=== PATIENT | male | born 1985 | race Caucasian/White ===

== ENCOUNTER 2023-04-02 16:02 | Emergency (ER) | payer MEDICAID, OTHER ==
[2023-04-02 16:16] VITALS: O2SAT 99
--- NOTE | 2023-04-02 16:45 | ED Physician Documentation ---
History of Present Illness - Stated complaint Stated Complaint: BILAT LEG PX - Chief complaint Chief Complaint: General - History obtained from History obtained from: Patient - Additonal information Additional information: Otherwise healthy 38-year-old gentleman developed what he describes as tingling pains in both feet and symmetrically went up to the knees last night. Today he felt presyncopal. There is no associated chest pain or trouble breathing. He had a similar episode a few years ago with negative workup and subsequent neurology consultation that was without clear diagnosis. He does not take any medications. PD PAST MEDICAL HISTORY - Past Medical History Past Medical History: No - Past Surgical History Past Surgical History: Yes General: Appendectomy - Present Medications Home Medications: Ambulatory Orders Medication Instructions Recorded Confirmed No Known Home Medications 05/20/14 05/20/14 - Allergies Allergies/Adverse Reactions: Allergies Allergy/AdvReac Type Severity Reaction Status Date / Time No Known Drug Allergies Allergy Verified 05/20/14 07:14 - Social History Does the pt smoke?: No Smoking Status: Never smoker Does the pt drink ETOH?: Yes Does the pt have substance abuse?: No - POLST Patient has POLST: No PD ED PE NORMAL - Vitals Vital signs reviewed: Yes - General General: Alert and oriented X 3, No acute distress - Cardiac Cardiac: RRR, No murmur - Respiratory Respiratory: No respiratory distress, Clear bilaterally - Abdomen Abdomen: Normal bowel sounds, Soft, Non tender - Back Back: No CVA TTP, No spinal TTP - Derm Derm: Normal color, Warm and dry - Neuro Neuro: Alert and oriented X 3, Normal speech, Other (Intact sharp versus dull discrimination throughout the lower extremities. Normal lower extremity reflexes and strength.) Results - Vitals Vitals: Vital Signs - 24 hr 04/02/23 04/02/23 16:11 16:13 Temperature 36.7 C 36.7 C Heart Rate 100 100 Respiratory 18 18 Rate Blood Pressure 146/93 H 146/93 H O2 Saturation 99 99 Oxygen O2 Source Room air - EKG (time done) 1614 EKG releavant findings:: EKG personally interpreted by author of this note. Relevant findings are: Rate: Rate (enter#) (88) Rhythm: NSR [place]: Normal Intervals: Normal [place] QRS: Normal Ischemia: Normal ST segments Computer interpretation: Agree with computer - Labs Labs: Laboratory Tests 04/02/23 04/02/23 16:47 16:47 WBC 8.3 RBC 5.66 Hgb 15.9 Hct 47.6 MCV 84.1 MCH 28.1 MCHC 33.4 RDW 12.3 Plt Count 272 MPV 9.4 Neut # (Auto) 6.3 Lymph # (Auto) 1.3 L Divide # (Auto) 0.5 Eos # (Auto) 0.1 Baso # (Auto) 0.0 Absolute Nucleated RBC 0.00 Nucleated RBC % 0.0 Sodium 137 Potassium 4.1 Chloride 103 Carbon Dioxide 28 Anion Gap 6.0 BUN 16 Creatinine 1.0 Estimated GFR (MDRD) 85 L Glucose 102 Calcium 9.5 Magnesium 1.9 Total Bilirubin 1.4 H AST 19 ALT 36 Alkaline Phosphatase 87 Total Protein 7.6 Albumin 4.5 Globulin 3.1 Albumin/Globulin Ratio 1.5 TSH 2.87 PD Medical Decision Making - ED course ED course: 38-year-old gentleman with paresthesias, and very atypical tingling pain that is symmetric in both legs. This is not consistent with DVT. He also had some presyncope today. Had a similar episode few years ago with negative workup and neurology consultation. Suspect today's result will be similar, but reasonable to do some basic labs and EKG given his symptoms. CBC, CMP normal with exception of mild elevation of bilirubin which was present on prior labs done 8 years ago suggestive of Gilbert's Departure - Departure Disposition: 01 Home, Self Care Clinical Impression: Paresthesia of bilateral legs Condition: Good Record reviewed to determine appropriate education?: Yes Instructions: ED Paraesthesias Comments: The cause of your symptoms is unclear. EKG, CBC, CMP are all normal with the exception of a mild elevation in bilirubin which is chronic and seen on prior labs and not uncommon in healthy individuals. Call your doctor to arrange a follow-up appointment, make the next available appointment. In the interim, return anytime if worse or if new symptoms develop. Forms: PCP List
[2023-04-02 16:58] LABS: BASOPHILS % (AUTO) 0.5 %; EOSINOPHILS # (AUTO) 0.1 10^3/uL (0.0-0.7); HCT - HEMATOCRIT 47.6 % (42.0-52.0); HGB - HEMOGLOBIN 15.9 g/dL (14.0-18.0); LYMPHOCYTES # (AUTO) 1.3 10^3/uL (1.5-3.5); LYMPHOCYTES % (AUTO) 16.2 %; MEAN CORPUSCULAR HEMOGLOBIN 28.1 pg (27.0-31.0); MEAN CORPUSCULAR HGB CONC 33.4 g/dL (32.0-36.0); MEAN CORPUSCULAR VOLUME 84.1 fL (80.0-94.0); MEAN PLATELET VOLUME 9.4 fL (7.4-11.4); MONOCYTES # (AUTO) 0.5 10^3/uL (0.0-1.0); MONOCYTES % (AUTO) 6.5 %; NEUTROPHILS # (AUTO) 6.3 10^3/uL (1.5-6.6); NEUTROPHILS % (AUTO) 75.4 %; PLT - PLATELET COUNT 272 10^3/uL (130-450); RED BLOOD COUNT 5.66 10^6/uL (4.70-6.10); RED CELL DISTRIBUTION WIDTH 12.3 % (12.0-15.0); WHITE BLOOD COUNT 8.3 x10^3/uL (4.8-10.8)
[2023-04-02 17:14] LABS: ALBUMIN 4.5 g/dL (3.2-5.5); ALBUMIN/GLOBULIN RATIO 1.5 (1.0-2.2); BILIRUBIN,TOTAL 1.4 mg/dL (0.2-1.0); CALCIUM 9.5 mg/dL (8.5-10.3); MAGNESIUM 1.9 mg/dL (1.7-2.3); POTASSIUM 4.1 mmol/L (3.5-4.5); TOTAL PROTEIN 7.6 g/dL (6.4-8.9)
[2023-04-02 17:25] LABS: THYROID STIMULATING HORMONE 2.87 uIU/mL (0.34-5.60)
[2023-04-02 18:03] VITALS: BP 140/88
== END 2023-04-02 17:56 | disposition home or self-care (01) ==
LOC: ED 16:02
DX: R20.2 Paresthesia of skin (principal)
CPT/HCPCS: 36415; 80053; 83735; 84443; 85025; 93005; 99283; 99284

== ENCOUNTER 2023-05-15 16:47 | Emergency (ER) | payer OTHER ==
--- NOTE | 2023-05-15 17:52 | ED Physician Documentation ---
PD HPI OPHTHO - Stated complaint Stated Complaint: BILAT EYE PX - Chief complaint Chief Complaint: Heent - History obtained from History obtained from: Patient - Additional information Additional information: About a month ago while driving he developed bilateral eye pain. It started to get worse and worse and eventually saw his manager home healthcare who thought it was dry I think and encouraged oral fish oil and topical lubricants. He was getting worse after that and was subsequently started on Pred forte 2 days ago. He does not have a history of eye problems. Does not feel like his vision is affected by this per se. PD PAST MEDICAL HISTORY - Past Medical History Past Medical History: Yes - Past Surgical History Past Surgical History: Yes General: Appendectomy - Present Medications Home Medications: Ambulatory Orders Medication Instructions Recorded Confirmed No Known Home Medications 05/20/14 05/20/14 - Allergies Allergies/Adverse Reactions: Allergies Allergy/AdvReac Type Severity Reaction Status Date / Time No Known Drug Allergies Allergy Verified 05/15/23 17:13 - Social History Does the pt smoke?: No Smoking Status: Never smoker Does the pt drink ETOH?: Yes Does the pt have substance abuse?: No - POLST Patient has POLST: No PD ED PE NORMAL - Vitals Vital signs reviewed: Yes - General General: Alert and oriented X 3, No acute distress - HEENT HEENT: PERRL, EOMI, Other (He has mild viral appearing conjunctivitis on either side versus an inflammatory conjunctivitis. No cell or flare. No fluorescein uptake. Mono-Pen 24 bilaterally) - Neck Neck: Supple, no meningeal sign, No bony TTP - Neuro Neuro: Alert and oriented X 3 Results - Vitals Vitals: Vital Signs - 24 hr 05/15/23 17:09 Temperature 37.0 C Heart Rate 125 H Respiratory 16 Rate Blood Pressure 175/107 H O2 Saturation 99 Oxygen O2 Source Room air PD Medical Decision Making - ED course ED course: 38-year-old gentleman with nonspecific conjunctivitis. Certainly does not look bacterial in the time course would be against viral, so could be autoimmune versus inflammatory. He has been on Pred forte but only for about 36 hours. This is probably causing mild elevation in his eye pressures. Departure - Departure Disposition: 01 Home, Self Care Clinical Impression: Inflammation of conjunctiva Condition: Good Record reviewed to determine appropriate education?: Yes Follow-Up: Quincy Jordan MD [Provider Admit Priv/Credential] - Comments: As discussed it looks like some sort of inflammatory conjunctivitis. I think you can continue the Pred forte but reasonable to stop the lubricating drops as they seem to maybe inflame you some more. Also reasonable to follow-up with our sourcing analyst, his numbers on this form and you can call his office on Wednesday for the next available appointment. Return for new or worsening symptoms. Forms: PCP List
[2023-05-15 18:26] VITALS: BP 155/99; O2SAT 96
== END 2023-05-15 18:17 | disposition home or self-care (01) ==
LOC: ED 16:47
DX: H10.9 Unspecified conjunctivitis (principal)
CPT/HCPCS: 99282; 99283

== ENCOUNTER 2023-05-20 16:57 | Emergency (ER) | payer OTHER ==
--- NOTE | 2023-05-20 20:26 | ED Physician Documentation ---
PD HPI CHEST PAIN - Stated complaint Stated Complaint: CHEST PX - Chief complaint Chief Complaint: Cardiac - History obtained from History obtained from: Patient - Additional information Additional information: 38yM with pmh htn otherwise healthy p/w R chest pain dull, pulling sensation nonradiating worse with end expiration since 4pm today, sudden onset, 3/10 severity. denies cough, soa, leg swelling, n/v. Review of Systems Constitutional: denies: Fever, Chills Throat: denies: Sore throat Cardiac: reports: Chest pain / pressure. denies: Palpitations Respiratory: denies: Dyspnea, Cough GI: denies: Nausea, Vomiting PD PAST MEDICAL HISTORY - Past Surgical History Past Surgical History: Yes General: Appendectomy - Present Medications Home Medications: Ambulatory Orders Medication Instructions Recorded Confirmed No Known Home Medications 05/20/14 05/20/23 - Allergies Allergies/Adverse Reactions: Allergies Allergy/AdvReac Type Severity Reaction Status Date / Time No Known Drug Allergies Allergy Verified 05/20/23 17:27 - Social History Does the pt smoke?: No Smoking Status: Never smoker Does the pt drink ETOH?: Yes Does the pt have substance abuse?: No - POLST Patient has POLST: No PD ED PE NORMAL - Vitals Vital signs reviewed: Yes - General General: Alert and oriented X 3, No acute distress, Well developed/nourished - HEENT HEENT: Atraumatic, PERRL, EOMI, Moist mucous membranes, Pharynx benign - Neck Neck: Supple, no meningeal sign - Cardiac Cardiac: RRR - Respiratory Respiratory: No respiratory distress, Clear bilaterally - Abdomen Abdomen: Non tender, Non distended - Derm Derm: Normal color, Warm and dry - Extremities Extremities: No tenderness to palpate Results - Vitals Vitals: Vital Signs - 24 hr 05/20/23 17:20 Temperature 37.0 C Heart Rate 94 Respiratory 17 Rate Blood Pressure 166/88 H O2 Saturation 99 Oxygen O2 Source Room air PD Medical Decision Making - ED course ED course: 38yM presents to the ED with atypical R chest pain starting at 4pm. He is well appearing with normal EKG. doubt spontaneous PTX given normal lung exam. PERC negative. minimal risk factors for MT and patient is well appearing with normal ekg. advised to f/u with pcp regarding high blood pressure, which has improved to 140/80 without any intervention. return precautions given. Departure - Departure Disposition: Home, Self Care Clinical Impression: Chest wall pain Condition: Stable Instructions: ED Strain Chest Wall Comments: You were seen in the ED for chest wall pain and found to have a normal ekg. Your vital signs were normal except for some high blood pressure. Please set up an appointment with your primary care provider for follow up. return to the ED for new or worsening symptoms or other concerns. Forms: PCP List
[2023-05-20 20:49] VITALS: BP 136/78; O2SAT 98
== END 2023-05-20 20:30 | disposition home or self-care (01) ==
LOC: ED 16:57
DX: R07.89 Other chest pain (principal)
CPT/HCPCS: 93005; 99283